=== PATIENT | female | born 1980 | race Caucasian/White ===

== ENCOUNTER 2020-03-29 09:20 | Day surgery (SDC) | payer BC ==
[2020-03-26 13:59] LABS: Urine Appearance CLEAR; Urine Bilirubin NEGATIVE (NEG); Urine Blood NEGATIVE (NEG); Urine Color YELLOW; Urine Glucose NEGATIVE (NEG); Urine Protein NEGATIVE (NEG); Urine Specific Gravity <=1.005 (1.005-1.030); Urine Urobilinogen 0.2 mg/dL (0.2-1.0); Urine pH 6.5 (5.0-7.0)
[2020-03-26 13:59] LABS: Absolute Lymphocytes (CBC) 1.6 K/uL (0.7-4.9); Basophils % 1.4 % (0-1.3); Lymphocytes % 42.6 % (15.3-44.8); RBC Red Blood Cell Count 4.27 M/uL (3.86-4.86)
[2020-03-26 14:01] LABS: Urine Microscopic Reflex NO UMIC
[2020-03-29] MEDS ORDERED: SCOPOLAMINE HYDROBROMIDE PATCH TD ONE (09:59)
[2020-03-29] MEDS ORDERED: Ringers Lactate 1,000 ML IV ONE (09:59)
[2020-03-29] MEDS ORDERED: MIDAZOLAM HCL 2 MG/2 ML INJ ONE (12:00)
[2020-03-29] MEDS ORDERED: dexAMETHasone 10 MG/ML VIAL ONE (12:00)
[2020-03-29] MEDS ORDERED: propofoL 200 MG/20 ML VIAL IV ONE (12:00)
[2020-03-29] MEDS ORDERED: KETOROLAC 30 MG/ML INJ ONE (12:00)
[2020-03-29] MEDS ORDERED: ROCURONIUM 50 MG/5 ML VIAL IV ONE (12:01)
[2020-03-29] MEDS ORDERED: FENTANYL CITR 250 MCG/5 ML ONE (12:01)
[2020-03-29] MEDS ORDERED: ONDANSETRON 4 MG/2 ML VIAL ONE (12:01)
[2020-03-29] MEDS ORDERED: LIDOCAINE 2% MPF 5 ML VIAL ONE (12:01)
[2020-03-29] MEDS ORDERED: NA CHLORIDE 0.9% 1,000 ML ONE (12:21)
[2020-03-29] MEDS: BUPIVACAINE 0.5% Inj,MDV 50 mL VIAL ONE ×2 (13:00→14:45)
[2020-03-29] MEDS: HYDROMORPHONE HCL 1 MG/ML INJ ONE ×2 (15:40→15:45)
[2020-03-29] MEDS ORDERED: PROMETHAZINE INJ 25 MG/ML AMP ONE (15:51)
[2020-03-29 16:25] VITALS: BP 107/66; TEMP 98.8; O2SAT 100
[2020-03-29] MEDS ORDERED: IBUPROFEN 400 MG TAB ONE (16:52)
[2020-03-29] MEDS ORDERED: IBUPROFEN 200 MG TAB PO ONE (16:52)
--- NOTE | 2020-04-07 13:03 | OP ---
Date of Procedure: 03/29/2020 Surgeon: Sasha Castanon MD Strip Picker: Margret Chavis. Preoperative Diagnoses: Pelvic pain, deep dyspareunia, chronic blood loss anemia and menorrhagia. Postoperative Diagnoses: Pelvic pain, deep dyspareunia, chronic blood loss anemia and menorrhagia. Procedure Performed: 1.Diagnostic hysteroscopy, D and C. 2.Diagnostic laparoscopy, bilateral salpingectomy, and uterine suspension. Anesthesia: General endotracheal. Estimated Blood Loss: Minimal. Complications: No complications. Drains: No Drains. Specimens: Endometrial curettings and bilateral tubes. Condition: Patient's condition is stable. Findings: No endometriosis was found. Tubes were removed, they were slightly dilated. On hysterosc opy, endometrial lining slightly thickened, but no endometrial polyps. Adequate sample was performed . On uterine suspension, 0 Ethibond suture was used on both sides and the suspension suture was pull ed in a retroperitoneal fashion starting at the level of the internal inguinal ring and running under the peritoneum retroperitoneally coming out anteriorly through the suprapubic site and 2 separate pe rforations were made for strings from both sides, suspension sutures from both sides to be tied on to p of a bridge of anterior abdominal fascia. The suspension anteflexed the uterus in an adequate brianna omical fashion without any constriction of the round ligament. The ovaries appeared to be normal. U terus unremarkable. Description Of Procedure: After informed consent was verified, the patient was taken back to OR, claribel herbert in supine fashion on the operating table, general anesthesia was given, placed in a dorsal lithot emil position. Pelvic exam was performed. Uterus was retroflexed without any adnexal masses. No cul -de-sac nodularity was noted. Abdomen, vulva, vagina, and perineum were prepped and draped in a ster ile fashion. Morin was placed to drain the bladder. Speculum placed to expose the cervix. Anterior lip grasped with 2 Allis clamps. Diagnostic hysteroscopy was performed with a SlimLine hysteroscope . Endometrial curettings were performed after visualizing and there were no intracavitary masses. T he specimen was handed off for permanent pathology and a diagnostic VCare [facility]. Once the bottom area was draped, 1 cm infraumbilical incision was made with a scalpel using the open laparoscopy technique. Fascia was incised and peritoneum entered sharply. S-retractors were placed and after placing the Kin, insufflation was done. Site of entry was checked, unremarkable. Upper abdominal surface was unremarkable as well. The patient was placed in Trendelenburg and 5 mm suprap ubic and left lower quadrant ports were placed under direct vision. All incisions were injected with Marcaine at the beginning and end of the case, both the fascia and the skin levels. Thorough examination of the pelvic cavity including the anterior and posterior cul-de-sac, lateral br oad ligament anteriorly and posteriorly, and the lateral cantor of the pelvic cavity were all inspecte d. The diaphragmatic surfaces, omentum, and the bowel were all inspected and no evidence of any endo metriosis was found even on close examination. So at this point decided to perform uterine suspensio n and removal of the tubes. There was slight distortion and dilation of the distal parts of the tube s. The patient was completed with childbearing and was perfectly comfortable with removal of the tub es if there was no endometriosis found. So the tubes were removed with the help of the LigaSure and handed off for permanent pathology. Then, uterine suspension was performed. A 0 Ethibond suture was taken sliding and 2 passes were taken about 3 cm away from the insertion at t he level of the uterus, almost mid ligament, the sutures were placed in a fashion so that they are sl iding and not constricting. Both ends were looped through the bridge. Both ends were leveled up and placed in the lateral paracolic gutter on the left side. Then on the right side similar stitch was taken, the sliding maneuver was done, then the 2 ends were placed in the right paracolic gutter. The n, the incision at the suprapubic site was extended to 10 mm. Then the fascia was exposed and AgeneBiola nd laparoscopic instrument was passed through the opening off the fascia made for the port and then p assing at the level of the peritoneum staying retroperitoneally. This was advanced to create a Pap u ntil the internal ring was reached and right at this point there was a perforation made in the perito neum and the tip of the Re opened up and using the other grasper through the lateral port, the t ips of the left suture were passed onto the Re and they were pulled retroperitoneally coming out through the port site. Then, another small perforation was made in the fascia to the right of the e xisting opening with the help of tip of a long hemostat, then the Re was passed under the perito neum in a similar fashion exiting at the point of the internal ring, then once in the peritoneal cavi ty itself, the strings were pulled once grasped with a Re tips through the retroperitoneum and t hrough the second fascial incision. Then, the 2 sutures were tensioned adequately so that the uterus was anteflexed. The gas was desufflated. The flexion was checked so that it was optimal that there was no suture exposed. Once all this was done, the knots were tied on the top of the fascial bridge and they were trimmed appropriately so that they would not be prominent after healing. Then, after taking a last load, there was excellent hemostasis, injected the broad ligament anteriorly and the ro und ligament on both sides with the help of a long spinal 22-gauge needle with 0.25% Marcaine, 10 mL on each side for pain control. Then, the trocar was removed from the left lower quadrant, then the g as was desufflated and Kin removed. The fascial site was closed with the help of the 2 tagged sut ures tied at both ends and all skin incisions were closed with the help of interrupted 4-0 Vicryl sut ures. VCare and Morin were removed. Instrument, needle, and sponge counts were done and were correc t at the end of the case. The patient tolerated the procedure well. No evidence of any hematoma at the broad ligament. She was recovered from anesthesia and taken to the PACU in stable condition. EBL was minimal. She will foll ow up with me in 1 week. ADELE/CARLOS Voice ID: [id number] Report ID: [id number]
== END 2020-03-29 17:27 | disposition home or self-care (01) ==
LOC: OR 09:20
PROVIDERS: ATTEND Obstetrics & Gynecology
PROC: 0UJD8ZZ Inspection of Uterus and Cervix, Via Natural or Artificial Opening Endoscopic (ICD-10-PCS; 2020-03-29)
PROC: 0UT74ZZ Resection of Bilateral Fallopian Tubes, Percutaneous Endoscopic Approach (ICD-10-PCS; 2020-03-29)
PROC: 0US97ZZ Reposition Uterus, Via Natural or Artificial Opening (ICD-10-PCS; 2020-03-29)
PROC: 0UDB7ZX Extraction of Endometrium, Via Natural or Artificial Opening, Diagnostic (ICD-10-PCS; principal; 2020-03-29 10:30)
DX: N92.0 Excessive and frequent menstruation with regular cycle (principal); N83.12 Corpus luteum cyst of left ovary; N94.12 Deep dyspareunia; D50.0 Iron deficiency anemia secondary to blood loss (chronic); R10.2 Pelvic and perineal pain
CPT/HCPCS: 85025; 36415; 86900; 86850; 81025; 86901; 88302; 88305; 81003; 58558; 58700; 58400; J2704; J2550; J2250; J3010; J1100; J1170; J7120; J7030; J2405; 88304